=== PATIENT | female | born 1990 ===

== ENCOUNTER 2018-04-07 06:18 | Emergency (ER) | payer OTHER ==
[2018-04-07 06:36] VITALS: PULSE 94; RESP 16; TEMP 97.5; O2SAT 98
[2018-04-07] MEDS ORDERED: Lidocaine 2% Inj (20ml) IJ STA (07:39)
[2018-04-07] MEDS ORDERED: Lidocaine 2% MPF (5 ml) Inj ONE (08:48)
--- NOTE | 2018-04-07 08:52 | CT ---
Date of service: 04/07/2018 PROCEDURE: CT HEAD WITHOUT CONTRAST. HISTORY: fall head neck trauma COMPARISON: None available. TECHNIQUE: Axial computed tomography images were obtained through the head/brain without intravenous contrast. Radiation dose: Total exam DLP = 940.98 mGy-cm. This CT exam was performed using one or more of the following dose reduction techniques: Automated exposure control, adjustment of the mA and/or kV according to patient size, and/or use of iterative reconstruction technique. FINDINGS: HEMORRHAGE: No intracranial hemorrhage. BRAIN: Normal lopez-white matter differentiation and density are appreciated throughout the cerebrum and cerebellum with the brainstem appearing unremarkable as well. There is no mass effect. There is no suspicious extra-axial fluid collection and the midline brain anatomy appears diffusely unremarkable. VENTRICLES: Unremarkable. No hydrocephalus. CALVARIUM: No destructive bony lesion or displaced fracture identified including through the skullbase. PARANASAL SINUSES: Unremarkable as visualized. No significant inflammatory changes. MASTOID AIR CELLS: Unremarkable as visualized. No inflammatory changes. OTHER FINDINGS: None. IMPRESSION: Unremarkable noncontrast CT of the Head.
--- NOTE | 2018-04-07 08:58 | CT ---
Date of service: 04/07/2018 PROCEDURE: CT Cervical Spine without contrast HISTORY: fall head neck trauma COMPARISON: None available. TECHNIQUE: Axial computed tomography images were obtained of the cervical spine without the use of intravenous contrast. Coronal and sagittal reformatted images were created and reviewed. Radiation dose: Total exam DLP = 332.25 mGy-cm. This CT exam was performed using one or more of the following dose reduction techniques: Automated exposure control, adjustment of the mA and/or kV according to patient size, and/or use of iterative reconstruction technique. FINDINGS: VERTEBRAE: No fracture. Straightened curvature appreciated. No destructive bony lesion. DISCS/SPINAL CANAL/NEURAL FORAMINA: No significant central canal or neural foraminal stenosis. Discs heights are grossly preserved. PARASPINAL SOFT TISSUES: Unremarkable. OTHER FINDINGS: None. IMPRESSION: Straightened cervical curvature with otherwise unremarkable CT of the cervical spine.
--- NOTE | 2018-04-07 09:18 | ED PDOC ---
HPI: Head Injury Time Seen by Provider: 04/07/18 07:05 Chief Complaint (Nursing): Abnormal Skin Integrity Chief Complaint (Provider): Abnormal Skin Integrity History Per: Patient History/Exam Limitations: no limitations Injury Occurred (Timing): Just Before Arrival Onset/Duration Of Symptoms: Hrs (x 1 prior to arrival) Patient States: Fell Striking Head Loss Of Consciousness: No Additional Complaint(s): 27 year old female presents to the ED with a headache and laceration to the chin that began this morning, about 1 hour prior to arrival. Patient tripped and fell over luggage this morning, hitting her chin and head on the floor. She notes a small laceration to the chin and a mild to moderate headache. Patient is currently a six month old. States she is due to travel to [place] for one month beginning in 3 days. Her vaccinations, including Tetanus, are UTD. Denies LOC, vision or speech changes, focal weakness and nausea. PMD: Dr. Sloane Ren Past Medical History Reviewed: Historical Data, Nursing Documentation, Vital Signs Vital Signs: Last Vital Signs Temp 97.5 F L 04/07/18 06:28 Pulse 94 H 04/07/18 06:28 Resp 16 04/07/18 06:28 BP 119/82 04/07/18 06:28 Pulse Ox 98 04/07/18 06:28 - Medical History PMH: No Chronic Diseases - Surgical History Other surgeries: cervical biopsy - Family History Family History: States: Unknown Family Hx - Immunization History Hx Tetanus Toxoid Vaccination: Yes Hx Influenza Vaccination: Yes Hx Pneumococcal Vaccination: Yes - Allergies Allergies/Adverse Reactions: Allergies Allergy/AdvReac Type Severity Reaction Status Date / Time No Known Allergies Allergy Verified 04/07/18 06:36 Review of Systems ROS Statement: Except As Marked, All Systems Reviewed And Found Negative Gastrointestinal: Negative for: Abdominal Pain Musculoskeletal: Positive for: Neck Pain. Negative for: Arm Pain, Back Pain, Leg Pain Neurological: Positive for: Headache. Negative for: Dizziness Physical Exam - Reviewed Nursing Documentation Reviewed: Yes Vital Signs Reviewed: Yes - Physical Exam Appears: Positive for: Non-toxic, No Acute Distress Head Exam: Positive for: ATRAUMATIC, NORMAL INSPECTION, NORMOCEPHALIC (1.5 cm simple laceration submental area and two separate small abrasions to chin) Skin: Positive for: Warm, Dry Eye Exam: Positive for: EOMI, Normal appearance, PERRL ENT: Positive for: Normal ENT Inspection, TM Is/Are (normal) Neck: Positive for: Pain On Movement Of Neck (mild paraspinal tenderness) Cardiovascular/Chest: Positive for: Regular Rate, Rhythm. Negative for: Murmur Respiratory: Positive for: CNT, Normal Breath Sounds Gastrointestinal/Abdominal: Positive for: Normal Exam, Soft. Negative for: Tenderness Back: Positive for: Normal Inspection. Negative for: L CVA Tenderness, R CVA Tenderness, Vertebral Tenderness Extremity: Positive for: Normal ROM (full ROM x 4). Negative for: Deformity Neurologic/Psych: Positive for: Alert, television presenter II-XII (grossly intact), Oriented. Negative for: Motor/Sensory Deficits - ECG O2 Sat by Pulse Oximetry: 98 Medical Decision Making Medical Decision Makin:23 Impression: head injury Initial Plan: --Tylenol 650 mg PO --Lidocaine 2% 4 ml IJ --CT Cervical Spine w/o contrast --CT Head w/o contrast Time:08:49 CT HEAD without contrast FINDINGS: HEMORRHAGE: No intracranial hemorrhage. BRAIN: Normal lopez-white matter differentiation and density are appreciated throughout the cerebrum and cerebellum with the brainstem appearing unremarkable as well. There is no mass effect. There is no suspicious extra-axial fluid collection and the midline brain anatomy appears diffusely unremarkable. VENTRICLES: Unremarkable. No hydrocephalus. CALVARIUM: No destructive bony lesion or displaced fracture identified including through the skullbase. PARANASAL SINUSES: Unremarkable as visualized. No significant inflammatory changes. MASTOID AIR CELLS: Unremarkable as visualized. No inflammatory changes. OTHER FINDINGS: None. IMPRESSION: Unremarkable noncontrast CT of the Head. Time: 8:54 CT Cervical Spine without contrast FINDINGS: VERTEBRAE: No fracture. Straightened curvature appreciated. No destructive bony lesion. DISCS/SPINAL CANAL/NEURAL FORAMINA: No significant central canal or neural foraminal stenosis. Discs heights are grossly preserved. PARASPINAL SOFT TISSUES: Unremarkable. OTHER FINDINGS: None. IMPRESSION: Straightened cervical curvature with otherwise unremarkable CT of the cervical spine. Scribe Attestation: Documented by Elizabet Dominguez acting as a scribe for Carlos Mendez III, DO Provider Scribe Attestation: All medical record entries made by the Scribe were at my direction and personally dictated by me. I have reviewed the chart and agree that the record accurately reflects my personal performance of the history, physical exam, medical decision making, and the department course for this patient. I have also personally directed, reviewed, and agree with the discharge instructions and disposition. Procedures - Time-Out Type of Procedure: Chin laceration repair - Laceration/Wound Repair Chin Laceration Repair Wound Length (cm): 1.5 Wound's Depth, Shape: superficial Wound Repaired With: Sutures Number of Sutures: 2 Wound Complexity: Simple Progress: 2 simple, interrupted sutures after Lidocaine 2%. Patient tolerating well. Disposition - Clinical Impression Clinical Impression: Head injury, Chin laceration, Neck strain - Disposition Condition: STABLE Additional Instructions: Wound care: keep clean and dry x2 days then warm soapy water, do not scrub, 2x daily. Use bacitracin 2x daily starting tonight. Have sutures removed in 4-5 days. Return to ER for any redness, swelling, fever or discharge from wound. Small scar is possible, use skin moisturizer and sun protection to help minimize. Instructions: Closed Head Injury, Laceration Repair With Samson (DC), Neck Sprain (DC) Forms: [employer] ([place])
[2018-04-07 09:25] VITALS: BP 117/73
== END 2018-04-07 09:25 | disposition home or self-care (01) ==
LOC: H.ER 06:18
DX: S01.81XA Laceration without foreign body of other part of head, initial encounter (principal); S16.1XXA Strain of muscle, fascia and tendon at neck level, initial encounter; S09.90XA Unspecified injury of head, initial encounter; W01.0XXA Fall on same level from slipping, tripping and stumbling without subsequent striking against object, initial encounter; Y92.89 Other specified places as the place of occurrence of the external cause